=== PATIENT | female | born 1985 | race Caucasian/White ===

== ENCOUNTER → 2016-08-11 | Outpatient (CLI) | payer MEDICAID ==
[~2016-08-11] MED LIST: APNO TOP; LANSINOH7 GM TOP; MOTRIN800 MG PO; PERCOCET 5-3251 EACH PO; PHENERGAN25 M1 PO; PRENATAL 1+1)(P1 TAB PO; SURFAK240 MG PO; XANAX0.5 MG PO; ZOFRAN4 MG PO
== END | disposition disaster alternative care site (69) ==
LOC: GRAD 14:40
DX: M54.9 Dorsalgia, unspecified (principal); R10.9 Unspecified abdominal pain

== ENCOUNTER → 2016-08-26 | Outpatient (CLI) | payer MEDICAID | END | disposition disaster alternative care site (69) | LOC: GRAD 08:38 | DX: Z36 Encounter for antenatal screening of mother (principal); Z3A.30 30 weeks gestation of pregnancy ==

== ENCOUNTER 2016-09-08 17:55 | Outpatient (CLI) | payer MEDICAID ==
[~2016-09-08] VITALS: Ht 170.2 cm
[2016-09-08] MEDS ORDERED: PRENATAL 1+1)(P1 TAB PO (18:44)
[2016-09-08] MEDS ORDERED: XANAX0.5 MG PO (18:45)
[2016-09-08] MEDS ORDERED: ZOFRAN4 MG PO (18:46)
[2016-09-08] MEDS ORDERED: PHENERGAN25 M1 PO (18:46)
== END 2016-09-08 20:10 | disposition disaster alternative care site (69) ==
LOC: GOBM 17:55 → GOBS 17:58 → GOBM 20:10
DX: O26.93 Pregnancy related conditions, unspecified, third trimester (principal); Z3A.31 31 weeks gestation of pregnancy
CPT/HCPCS: G0463

== ENCOUNTER 2016-10-14 15:17 | Inpatient (IN) | payer MEDICAID ==
[~2016-10-14] VITALS: Ht 170.2 cm; Wt 81.1 kg
--- NOTE | ~2016-10-14 | DS ---
PATIENT'S NAME: FRED SINGH [facility] AGE: 31 Y [address] ROOM: [place] [id number] LOCATION: GOBS ADMIT DATE: 10/15/2016 Discharge Summary DISCHARGE DATE: 10/17/2016 FAMILY PHYSICIAN: Tung Trevino MD ATTENDING PHYSICIAN: Ousmane Tovar ADMISSION DIAGNOSES: 1. Intrauterine at 36 weeks. 2. History of previous delivery at 32 weeks. 3. Anxiety. 4. Tobacco abuse. 5. GBS positive. 6. Hyperemesis gravidarum. PROCEDURES PERFORMED DURING THIS HOSPITALIZATION: Spontaneous vaginal delivery. COMPLICATIONS: None. CONSULTATIONS: None. HISTORY AND HOSPITAL COURSE: The patient is 31-year-old, G3, P1-1-0-2, who presented to the office with complaints of contractions. She was 4 cm dilated and was sent over to Labor and Delivery. She made further change to 5 cm and an AROM was performed with clear fluid. She progressed the rest of the way through labor and delivered a viable male weighing 7 pounds 1 ounce with score of 6 and 8. She received clindamycin for GBS positive status. The remainder of course was uncomplicated, and she was meeting all goals on day #2 and was felt to be stable to discharge to home. DISCHARGE PRECAUTIONS: She was instructed to call with fever greater than 100.4, uncontrolled pain, heavy vaginal bleeding greater than 2 pads per hour, and she is to be on pelvic rest for 6 weeks. She is to follow up with Dr. Tovar in 6 weeks. DISCHARGE MEDICATIONS: Please see medication list. OUSMANE TOVAR MD GT/modl PATIENT'S NAME: FRED SINGH [facility] AGE: 31 Y [address] ROOM: [place] [address] LOCATION: GOBS ADMIT DATE: 10/15/2016 Discharge Summary DISCHARGE DATE: 10/17/2016 FAMILY PHYSICIAN: Tung Trevino MD ATTENDING PHYSICIAN: Ousmane Tovar /[id number] d: 10/18/169 t: 10/19/16 2154, DISCHARGE SUMMARY
--- NOTE | ~2016-10-14 | OR ---
PATIENT'S NAME: FRED SINGH [facility] AGE: 31 Y [address] ROOM: [place] [address] LOCATION: [facility] ADMIT DATE: 10/15/2016 OR/Procedure Report DISCHARGE DATE: FAMILY PHYSICIAN: Tung Trevino MD ATTENDING PHYSICIAN: OUSMANE TOVAR SURGEON: Ousmane Tovar MD METALLURGICAL OR MATERIALS TECHNICIAN: DATE OF PROCEDURE: 10/15/2016 PROCEDURE PERFORMED: Spontaneous vaginal delivery over intact perineum. PREDELIVERY DIAGNOSES: 1. An intrauterine at 36 weeks and 1 day. 2. contractions. 3. GBS positive with penicillin allergy. 4. History of previous delivery. 5. Anxiety. 6. Hyperemesis gravidarum. 7. Tobacco abuse. POSTDELIVERY DIAGNOSES: 1. An intrauterine at 36 weeks and 1 day. 2. contractions. 3. GBS positive with penicillin allergy. 4. History of previous delivery. 5. Anxiety. 6. Hyperemesis gravidarum. 7. Tobacco abuse. FINDINGS: Viable male infant, weighing 7 pounds, 1 ounce. Intact placenta with 3-vessel cord. scores of 6 and 8. No cervical, vaginal, or perineal lacerations. SPECIMEN: Cord blood and placenta. ESTIMATED BLOOD LOSS: 300 mL. ANESTHESIA: Epidural. ANTIBIOTICS: Clindamycin due to penicillin allergy. COMPLICATIONS: None. DISPOSITION: The patient is stable and is to remain in room with infant. PATIENT'S NAME: FRED SINGH [facility] AGE: 31 Y [address] ROOM: [place] [address] LOCATION: [facility] ADMIT DATE: 10/15/2016 OR/Procedure Report DISCHARGE DATE: FAMILY PHYSICIAN: Tung Trevino MD ATTENDING PHYSICIAN: OUSMANE TOVAR INDICATION FOR THE PROCEDURE: The patient is a 31-year-old G3, P-1-1-0-2 who had been followed in our clinic for a that was complicated by history of previous delivery at 32 weeks as well as history of anxiety, hyperemesis, and tobacco abuse. The patient had been on 17 hydroxyprogesterone injections throughout the due to the history of previous delivery. She presented on October 14, 2016 with the complaints of contractions. The patient was 4-cm dilated in the office and was sent over to Labor and delivery. She was monitored and made further change to 5. Due to continued labor, decision was made at that time to perform AROM. Clear fluid was noted. Approximately an hour later, it was felt that there was a fingers were palpated on cervical exam. They were able to be reduced past the head. IV Pitocin was started. The patient then progressed through labor to complete. heart tones remained reassuring throughout the labor curve. DESCRIPTION OF PROCEDURE: The patient was in the lithotomy position in stirrups. With maternal expulsive efforts, the head was delivered in straight OA presentation. Tight nuchal cord x1 was reduced. head was allowed to restitute toward the patient's left leg. With the assistance of gentle downward traction and upward traction, the shoulders were delivered with the right arm coming across the chest at the same time. The right leg was also crossed over the body. The remainder of the body delivered and was placed on the mother's chest. Infant did not initially appear vigorous. Cord was clamped and cut as the infant was resuscitated on the mother's chest. The infant was then taken over to the warmer by the awaiting NICU nurse. IV Pitocin was started per protocol. Cord blood was obtained. Gentle downward traction was placed on the cord and the placenta delivered spontaneously and intact. Cervix, vagina, and perineum were inspected with findings of no lacerations. was doing well at that time and had a vigorous cry. All needle, sponge, and instrument counts were noted to be correct x2 and the infant remained in the room with the mother at the completion of the procedure. OUSMANE TOVAR MD GT/modl /[id number] d: 10/15/16 0432 t: 10/15/16 0854, OPERATIVE SUMMARY
[~2016-10-14 15:17] MED LIST changes: -APNO TOP; -LANSINOH7 GM TOP; -MOTRIN800 MG PO; -PERCOCET 5-3251 EACH PO; -SURFAK240 MG PO
[2016-10-14 16:19] LABS: BASOPHIL % 0.2 %; EOSINOPHIL # 0.1 K/uL (0.0-0.5); EOSINOPHIL % 0.5 %; HEMATOCRIT 34.8 % (33.0-46.0); HEMOGLOBIN 12.3 g/dL (11.0-15.0); IMMATURE GRANULOCYTE # 0.4 K/uL (0.0-0.3); LYMPHOCYTE # 2.3 K/uL (0.8-4.0); MCH 33.9 pg (27.0-34.0); MCHC 35.3 gm/dL (32.0-36.5); MCV 95.9 fl (83.0-98.0); MONOCYTE # 1.6 K/uL (0.0-1.0); MONOCYTE % 8.9 %; MPV 11.4 fl (9.4-12.4); NEUTROPHIL # (ANC) 13.2 K/uL (1.8-7.8); NEUTROPHIL % 75.4 %; NRBC % 0 /100WBC (0-0.00); PLATELET COUNT 177 K/uL (150-450); RBC 3.63 M/uL (3.50-5.50); RDW-CV 12.8 % (11.9-14.6); WBC 17.5 K/uL (4.0-11.0)
--- NOTE | 2016-10-14 22:14 | NUR ---
FUNDAL CHECK PERFORMED BY REBECCARNC, MINIMAL BLEEDING AND ONE SMALL CLOT NOTED. PT'S BP ELEVATED, PT'S PRIMARY NURSE IS NOTIFYING MD OF INCREASED BLEEDING AND ELEVATED PRESSURES.
--- NOTE | 2016-10-15 06:14 | NUR ---
Significant Event:VSS. motrin last given at 0230 and perocet last given at 0347 with relief. patient up an tidy; fundus is firm, midline and 1 below, voiding without difficulty Follow up:
--- NOTE | 2016-10-15 19:08 | NUR ---
Last VS: T:98.2 P:72 R: 16 BP: 98/50 Pain rating: . Last pain med: Medicated at: Effective: Breasts: , Nipples: Fundus firm 1 finger down Lochia: small flow....patient got up to the bathroom around 1100 and passed (2) golf ball size clots. when returning to bed fundus is now firm and 2-3 fingers down Epis/Perineum: bottom ok Voiding well: yes Significant event: . patient up and about, still has saline lock. took a shower and walked the hallway.
[2016-10-16 04:36] LABS: BASOPHIL # 0.1 K/uL (0.0-0.2); BASOPHIL % 0.4 %; EOSINOPHIL # 0.2 K/uL (0.0-0.5); EOSINOPHIL % 1.7 %; HEMOGLOBIN 10.5 g/dL (11.0-15.0); IMMATURE GRANULOCYTE # 0.3 K/uL (0.0-0.3); IMMATURE GRANULOCYTE % 2.2 %; LYMPHOCYTE # 3.7 K/uL (0.8-4.0); LYMPHOCYTE % 26.9 %; MCH 33.4 pg (27.0-34.0); MCHC 33.9 gm/dL (32.0-36.5); MCV 98.7 fl (83.0-98.0); MONOCYTE # 1.4 K/uL (0.0-1.0); MONOCYTE % 9.9 %; MPV 11.1 fl (9.4-12.4); NEUTROPHIL # (ANC) 8.2 K/uL (1.8-7.8); NEUTROPHIL % 58.9 %; NRBC % 0 /100WBC (0-0.00); PLATELET COUNT 154 K/uL (150-450); RBC 3.14 M/uL (3.50-5.50); RDW-CV 13.2 % (11.9-14.6); WBC 13.9 K/uL (4.0-11.0)
--- NOTE | 2016-10-16 04:52 | NUR ---
Last VS: T:98.0 P:80 R: 14 BP: 101/60 Pain ratin . Last pain med: Percocet/MOTRIN Medicated at: 0419 Effective: Yes Breasts: , Nipples: Fundus: FIRM/EVEN/2 DOWN Lochia: SMALL Epis/Perineum: Voiding well: YES Significant event:
--- NOTE | 2016-10-16 15:01 | NUR ---
Last VS: T:98.3 P:73 R: 14 BP: 103/53 Pain rating: . Last pain med: percocet at 0900 Medicated at: Effective: Breasts: , Nipples: Fundus: firm and 2 fingers down Lochia:small flow, no clots today Epis/Perineum: bottom fine. Voiding well: yes Significant event: . patient up and about. home tomorrow.
--- NOTE | 2016-10-16 17:13 | NUR ---
patient took a percocet/motrin at 1657 for a pain rating of 9.
--- NOTE | 2016-10-17 06:36 | NUR ---
VSS. Fundus firm. Pt states passing some smaller clots. Bleeding min-small. Motrin at 0300 Percocet at 2317. Pt Breast feeding on demand, and pumping. Need Paternity papers done. Home today
[2016-10-17] MEDS ORDERED: APNO TOP (14:45)
[2016-10-17] MEDS ORDERED: MOTRIN800 MG PO (14:45)
[2016-10-17] MEDS ORDERED: SURFAK240 MG PO (14:45)
[2016-10-17] MEDS ORDERED: LANSINOH7 GM TOP (14:46)
[2016-10-17] MEDS ORDERED: PERCOCET 5-3251 EACH PO (14:47)
--- NOTE | 2016-10-17 15:38 | NUR ---
Met with patient and father of baby in the NICU this afternoon at 1443. Mom and baby, Davin were scheduled for discharge, but Davin did not pass the car seat study x's 2. He was alarming with desats and delma's during both car seat study tests so he was admitted to the NICU. Mom and dad have a 3 yo and a 2yo at home. They live here in [place]. The plan is for them to alternate who is here at the hospital with mom being at home most overnights. I explained to them that we can bring a cot into the room for them to sleep on. They can order one guest tray to the room or bring food in. Instructed her to call Medicaid and notify them of Davin's which she says she will do tomorrow. Community resources provided to mom as well. Mom wanted to be sure that the physician calls her after rounds each day because she had a bad experience when her 2 year old was in the NICU. Mom provided [phone] as her contact number. I left a note on Davin's clipboard with instructions for doctor to call this number after rounds. No other needs or concerns at this time. Will continue to follow.
== END 2016-10-17 16:00 | disposition disaster alternative care site (69) | DRG 775 ==
LOC: GOBS 15:17 → GOBM 15:17 → GOBS 15:18 → GOBM 15:19 → GOBS 10-15 00:10
PROVIDERS: Obstetrics & Gynecology; ADMIT Family Medicine
PROC: 10E0XZZ Delivery of Products of Conception, External Approach (ICD-10-PCS; principal; 2016-10-15)
DX: O60.14X0 Preterm labor third trimester with preterm delivery third trimester, not applicable or unspecified (principal); F41.9 Anxiety disorder, unspecified; O99.824 Streptococcus B carrier state complicating childbirth; O21.0 Mild hyperemesis gravidarum; Z3A.36 36 weeks gestation of pregnancy; Z37.0 Single live birth; Z72.0 Tobacco use
CPT/HCPCS: J2001; J2590; J3010; J7120

== ENCOUNTER 2016-10-30 12:21 | Emergency (ER) | payer MEDICAID ==
--- NOTE | ~2016-10-30 | ER ---
PATIENT'S NAME: FRED SINGH [facility] AGE: 31 Y [address] ROOM: [place], [place] [address] LOCATION: [facility] ADMIT DATE: 10/30/2016 ER/Outpatient Report DISCHARGE DATE: 10/30/2016 FAMILY PHYSICIAN: Erica Fierro [employer] ATTENDING PHYSICIAN: Anuel Koroma Time of Arrival: 1221 hours. Time of Evaluation: 1235 hours. CHIEF COMPLAINT: Increased vaginal bleeding, post delivery. HISTORY OF PRESENT ILLNESS: This is a 31-year-old female who presents to the ER, who states she had a vaginal delivery couple of weeks ago. She states that after her delivery, she started passing some large clots at that time. She states to the nurse that she had seemed concerned, but she was dismissed home. She did call her [facility] and spoke with their nurse. The nurse told her that it was normal to have large clots like that post delivery. She states that her pain has increased over the past 3 days. She states that she cannot even lay her baby across her stomach to breast-feed. She states it does make her feel little bit nauseated. She has had no vomiting. No fever or chills. No troubles with urination. She states after every feeding, her uterus will cramp down and then she will pass fist size clots and has a significant pain for approximately an hour after each session. She states she does not feel lightheaded or dizzy. She states that she has had retained placenta with a prior and this was similar symptoms to when she had that in the past. ALLERGIES: PENICILLIN. MEDICATIONS: Ibuprofen. She has not taken her Percocet in the past week because she ran out all of those medications. PAST MEDICAL HISTORY: History of retained placenta from her previous . She has had appendectomy, cholecystectomy, left ovary and tonsil adenoid removal. SOCIAL HISTORY: Denies smoking, drug, or alcohol use. REVIEW OF SYSTEMS: All systems reviewed and were negative with the exception of those discussed PATIENT'S NAME: FRED SINGH [facility] AGE: 31 Y [address] ROOM: [place], [place] [address] LOCATION: [facility] ADMIT DATE: 10/30/2016 ER/Outpatient Report DISCHARGE DATE: 10/30/2016 FAMILY PHYSICIAN: Erica Fierro [employer] ATTENDING PHYSICIAN: Anuel Koroma in the HPI. PHYSICAL EXAMINATION: VITAL SIGNS: Weight is 72 kg taken, blood pressure is 103/70, pulse 75, respirations 20, temperature 98.2 degrees tympanically, and saturations 97% on room air. [place] Coma Score is 15. GENERAL: Alert, calm, well-developed female, in mild distress. HEENT: Head: Normocephalic. Eyes: Pupils are equal and reactive to light. Does display moist mucous membranes. LUNGS: Clear to auscultation bilaterally. No wheezes or crackles. HEART: Regular rate and rhythm. ABDOMEN: Soft. She has tenderness all across her lower abdomen. She does guard with this. She has good bowel sounds throughout. EXTREMITIES: No clubbing, cyanosis, or edema. Full range of motion of all limbs. LABORATORY DATA: CBC: White blood cells 8.2, hemoglobin 14.7, and platelets 230. HCG is 5.0. Ultrasound was done and shows nonspecific endometrial thickening. She does have clot noted in the uterus. It is not definite for retained products, but cannot rule this out. IMPRESSION: Abnormal uterine bleeding post vaginal delivery. ASSESSMENT AND PLAN: The patient did not lose any large clots here in the emergency room. She did rest comfortably and we did give her 2 Percocet here in the emergency room for her pain. I did speak with Dr. Copeland, who is on-call for [facility], and he would like her to follow up in clinic in the next couple of days. She needs to monitor her symptoms closely. I will give her some more Percocet for her pain and she may continue using ibuprofen as well. She needs to push fluids and follow up. I would like her to follow up tomorrow. The patient understands and agrees with care. TRAVIS VIVEROS PA-C FOR DO INDIRA BELLAMY/radha /[id number] d: t: 11/02/16 1248, OUTPATIENT REPORT
[~2016-10-30 12:21] MED LIST changes: +APNO TOP; +LANSINOH7 GM TOP; +MOTRIN800 MG PO; +PERCOCET 5-3251 EACH PO; +SURFAK240 MG PO
[2016-10-30 13:02] LABS: BASOPHIL # 0.1 K/uL (0.0-0.2); BASOPHIL % 0.6 %; EOSINOPHIL # 0.2 K/uL (0.0-0.5); EOSINOPHIL % 2.2 %; HEMOGLOBIN 14.7 g/dL (11.0-15.0); IMMATURE GRANULOCYTE % 0.2 %; LYMPHOCYTE # 3.3 K/uL (0.8-4.0); LYMPHOCYTE % 40.7 %; MCV 95.1 fl (83.0-98.0); MONOCYTE # 0.7 K/uL (0.0-1.0); MONOCYTE % 7.9 %; NEUTROPHIL % 48.4 %; NRBC % 0 /100WBC (0-0.00); RDW-CV 11.7 % (11.9-14.6); WBC 8.2 K/uL (4.0-11.0)
[2016-10-30 13:04] LABS: HEMATOCRIT 42.5 % (33.0-46.0); MCH 32.9 pg (27.0-34.0); MCHC 34.6 gm/dL (32.0-36.5); PLATELET COUNT 230 K/uL (150-450); RBC 4.47 M/uL (3.50-5.50)
== END 2016-10-30 14:28 | disposition disaster alternative care site (69) ==
LOC: GMED 12:21
PROVIDERS: Emergency Medicine
DX: O72.2 Delayed and secondary postpartum hemorrhage (principal); Z88.0 Allergy status to penicillin; Z90.49 Acquired absence of other specified parts of digestive tract; Z90.89 Acquired absence of other organs; Z90.721 Acquired absence of ovaries, unilateral; Z79.1 Long term (current) use of non-steroidal anti-inflammatories (NSAID); Z88.1 Allergy status to other antibiotic agents; Z79.899 Other long term (current) drug therapy